=== PATIENT | male | born 1950 | race Caucasian/White ===

== ENCOUNTER 2018-05-08 22:58 | Inpatient (IN) ==
[2018-05-08] MEDS ORDERED: Labetalol HCl Inj 100 MG/20 ML Vial IV.PUSH ONE (23:25)
[2018-05-08] MEDS ORDERED: Sod Chloride 0.9% Inj 1,000 ML IV.CONT SCH (23:30)
--- NOTE | 2018-05-08 23:30 | ED ---
HPI General Chief Complaint: Neuro Symptoms/Deficit Stated Complaint: weakness Time Seen by Provider: 05/08/18 23:21 History of Present Illness HPI Narrative: 67-year-old male presents to the emergency department by private transportation the care of his family for evaluation of altered mental status change in his speech and complaint of numbness to the right side of the face and arm but some weakness to the left lower extremity. Patient stated he started noticing some numbness and tingling in his fingers and hands over the past few days but today since about 3 PM he has noticed that his symptoms have worsened with affecting his speech and with weakness to his left lower extremity. Patient has history of hypertension and diabetes. Patient denies known history of tobaccoism dyslipidemia atrial fibrillation denies any recent fever or injury or fall. Patient's stepdaughter at bedside states she is noted symptoms since she called him which is her routine around 530 and his symptoms have not improved that he seems altered in his mentation as well as speech to seems not to be normal. Here patient can articulate complete sentences and seems to have intact mentation. Related Data Allergies Allergy/AdvReac Type Severity Reaction Status Date / Time No Known Allergies Allergy Verified 05/08/18 23:09 Review of Systems Except as stated in HPI: all other systems reviewed are negative [facility] Medical History Medical History Diabetes (Acute) Hypertension (Acute) Social History Social History Substance History: No History of Abuse Smoking Status: Never smoker How Often Do You Have a Drink Containing Alcohol: Never Recent Travel in [facility] within the Last 8 Weeks: No Recent Out of Country Travel within the Last 8 Weeks: No Immunization History Tetanus Immunization: Unsure Hx Influenza Vaccine This Season: No Exam Narrative Exam Narrative: GENERAL: Well-developed well-nourished obese male in no acute distress no respiratory distress; GCS 15 SKIN: Focused skin assessment warm/dry. HEAD: Atraumatic. Normocephalic. EYES: Pupils equal and round. No scleral icterus. No injection or drainage. ENT: No nasal bleeding or discharge. Mucous membranes pink and moist. NECK: Trachea midline. No JVD. CARDIOVASCULAR: Regular rate and rhythm. No murmur appreciated. RESPIRATORY: No accessory muscle use. Clear to auscultation. Breath sounds equal bilaterally. GASTROINTESTINAL: Abdomen soft, non-tender, nondistended. Hepatic and splenic margins not palpable. MUSCULOSKELETAL: No obvious deformities. No clubbing. No cyanosis. No edema. NEUROLOGICAL: Awake and alert. No obvious cranial nerve deficits. Motor grossly within normal limits. Mild left lower extremity limb ataxia. No pronator drift. Normal speech. PSYCHIATRIC: Appropriate mood and affect; insight and judgment normal. Course Initial Documented Vital Signs Temperature 99 F 05/08/18 23:04 Pulse Rate 76 05/08/18 23:04 Respiratory Rate 20 05/08/18 23:04 Blood Pressure 226/109 H 05/08/18 23:04 Pulse Oximetry 98 05/08/18 23:04 Last Documented Vital Signs Temperature 99 F 05/08/18 23:04 Pulse Rate 79 05/09/18 01:23 Respiratory Rate 17 05/09/18 01:23 Blood Pressure 148/67 H 05/09/18 01:23 Pulse Oximetry 97 05/09/18 01:23 NIH Stroke Scale NIH Stroke Scale Level of Consciousness: 0-Alert Orientation Questions: 0-Answers both correct Responds to Commands: 0-Both tasks correct Gaze Eye Movement: 0-Horizontal movement WNL Visual Lackey: 0-No visual field defect Facial Movement: 0-Normal Motor Functions Arm LEFT: 0-No drift Motor Functions Arm RIGHT: 0-No drift Motor Functions Leg LEFT: 0-No drift Motor Functions Leg RIGHT: 0-No drift Limb Ataxia: 1-Ataxia in one limb Sensory Loss: 0-No sensory loss Best Language: 0-Normal Articulation: 0-Normal Extinction or Inattention Sensory: 0-Absent Total: 1 Medical Decision Making [facility] Narrative Medical decision making narrative: 67-year-old male with hypertension and diabetes presents with change in speech per family and mild altered mentation that appears to have improved since onset of symptoms around 3 PM according to patient although seems unchanged according to family members that have noted his symptoms since 5:30 PM today. Patient will be placed on ekg monitor with continuous pulse oximetry EKG shows sinus rhythm first-degree AV block no acute ST elevation injury pattern or ectopy noted patient be sent for imaging as well as basic lab tests. Patient is noted to be markedly hypertensive in triage as well as bedside blood pressure. Patient given labetalol 20 mg IV 1 dose Differential Diagnosis Differential Diagnosis: Uncontrolled hypertension, hypertensive crisis, TIA, CVA , ICH Lab Data Result diagrams: 05/08/18 23:30 05/08/18 23:30 Lab Results 05/08/18 05/08/18 05/08/18 Range/Units 23:18 23:30 23:30 WBC 10.2 (4.0-11.0) th/mm3 RBC 4.97 (4.50-5.90) mil/mm3 Hgb 13.7 (13.0-17.0) gm/dL Hct 42.6 (39.0-51.0) % MCV 85.7 (80.0-100.0) fL MCH 27.5 (27.0-34.0) pg MCHC 32.1 (32.0-36.0) % RDW 14.4 (11.6-17.2) % Plt Count 304 (150-450) th/mm3 MPV 7.6 (7.0-11.0) fL Neut % (Auto) 78.9 H (16.0-70.0) % Lymph % (Auto) 12.3 (9.0-44.0) % [place] % (Auto) 7.2 (0.0-8.0) % Eos % (Auto) 1.2 (0.0-4.0) % Baso % (Auto) 0.4 (0.0-2.0) % Neut # (Auto) 8.1 H (1.8-7.7) th/mm3 Lymph # (Auto) 1.3 (1.0-4.8) th/mm3 [place] # (Auto) 0.7 (0.0-0.9) th/mm3 Eos # (Auto) 0.1 (0.0-0.4) th/mm3 Baso # (Auto) 0.0 (0.0-0.2) th/mm3 WBC Differential . Differential Comment Auto diff final PT 10.0 (9.8-11.6) sec INR 1.0 Ratio APTT 25.4 (24.3-30.1) sec Sodium (136-145) meq/L Potassium (3.5-5.1) meq/L Chloride (98-107) meq/L Carbon Dioxide (21.0-32.0) meq/L Anion Gap (5-15) meq/L BUN (7-18) mg/dL Creatinine (0.60-1.30) mg/dL Estimated GFR (>89) mL/min POC Glucose 145 H (68-110) mg/dl Random Glucose (74-106) mg/dL Calcium (8.5-10.1) mg/dL Total Creatine Kinase (39-308) U/L CK-MB (CK-2) (0.5-3.6) ng/mL Troponin I (0.02-0.05) ng/mL B-Natriuretic Peptide (0-100) pg/mL Urine Color (Yellw/Straw) Urine Clarity (Clear) Urine pH (5.0-8.5) Ur Specific [place] (1.002-1.035) Urine Protein (Neg-Trace) mg/dL Urine Glucose (UA) (Negative) mg/dL Urine Ketones (Negative) mg/dL Urine Occult Blood (Negative) Urine Nitrate (Negative) Urine Bilirubin (Negative) Urine Urobilinogen (Less than 2) mg/dL Ur Leukocyte Esterase (Negative) Urine RBC (0-3) /hpf Urine WBC (0-5) /hpf Micro UA Comment Urine Culture Comments Blood Type Antibody Screen 05/08/18 05/08/18 05/08/18 Range/Units 23:30 23:30 23:30 WBC (4.0-11.0) th/mm3 RBC (4.50-5.90) mil/mm3 Hgb (13.0-17.0) gm/dL Hct (39.0-51.0) % MCV (80.0-100.0) fL MCH (27.0-34.0) pg MCHC (32.0-36.0) % RDW (11.6-17.2) % Plt Count (150-450) th/mm3 MPV (7.0-11.0) fL Neut % (Auto) (16.0-70.0) % Lymph % (Auto) (9.0-44.0) % [place] % (Auto) (0.0-8.0) % Eos % (Auto) (0.0-4.0) % Baso % (Auto) (0.0-2.0) % Neut # (Auto) (1.8-7.7) th/mm3 Lymph # (Auto) (1.0-4.8) th/mm3 [place] # (Auto) (0.0-0.9) th/mm3 Eos # (Auto) (0.0-0.4) th/mm3 Baso # (Auto) (0.0-0.2) th/mm3 WBC Differential Differential Comment PT (9.8-11.6) sec INR Ratio APTT (24.3-30.1) sec Sodium 137 (136-145) meq/L Potassium 3.9 (3.5-5.1) meq/L Chloride 100 (98-107) meq/L Carbon Dioxide 32.0 (21.0-32.0) meq/L Anion Gap 5 (5-15) meq/L BUN 18 (7-18) mg/dL Creatinine 1.02 (0.60-1.30) mg/dL Estimated GFR 73 L (>89) mL/min POC Glucose (68-110) mg/dl Random Glucose 148 H (74-106) mg/dL Calcium 8.7 (8.5-10.1) mg/dL Total Creatine Kinase 148 (39-308) U/L CK-MB (CK-2) 4.0 H (0.5-3.6) ng/mL Troponin I Less than 0.02 L (0.02-0.05) ng/mL B-Natriuretic Peptide 66 (0-100) pg/mL Urine Color (Yellw/Straw) Urine Clarity (Clear) Urine pH (5.0-8.5) Ur Specific [place] (1.002-1.035) Urine Protein (Neg-Trace) mg/dL Urine Glucose (UA) (Negative) mg/dL Urine Ketones (Negative) mg/dL Urine Occult Blood (Negative) Urine Nitrate (Negative) Urine Bilirubin (Negative) Urine Urobilinogen (Less than 2) mg/dL Ur Leukocyte Esterase (Negative) Urine RBC (0-3) /hpf Urine WBC (0-5) /hpf Micro UA Comment Urine Culture Comments Blood Type A Positive Antibody Screen Negative 05/09/18 Range/Units 00:00 WBC (4.0-11.0) th/mm3 RBC (4.50-5.90) mil/mm3 Hgb (13.0-17.0) gm/dL Hct (39.0-51.0) % MCV (80.0-100.0) fL MCH (27.0-34.0) pg MCHC (32.0-36.0) % RDW (11.6-17.2) % Plt Count (150-450) th/mm3 MPV (7.0-11.0) fL Neut % (Auto) (16.0-70.0) % Lymph % (Auto) (9.0-44.0) % [place] % (Auto) (0.0-8.0) % Eos % (Auto) (0.0-4.0) % Baso % (Auto) (0.0-2.0) % Neut # (Auto) (1.8-7.7) th/mm3 Lymph # (Auto) (1.0-4.8) th/mm3 [place] # (Auto) (0.0-0.9) th/mm3 Eos # (Auto) (0.0-0.4) th/mm3 Baso # (Auto) (0.0-0.2) th/mm3 WBC Differential Differential Comment PT (9.8-11.6) sec INR Ratio APTT (24.3-30.1) sec Sodium (136-145) meq/L Potassium (3.5-5.1) meq/L Chloride (98-107) meq/L Carbon Dioxide (21.0-32.0) meq/L Anion Gap (5-15) meq/L BUN (7-18) mg/dL Creatinine (0.60-1.30) mg/dL Estimated GFR (>89) mL/min POC Glucose (68-110) mg/dl Random Glucose (74-106) mg/dL Calcium (8.5-10.1) mg/dL Total Creatine Kinase (39-308) U/L CK-MB (CK-2) (0.5-3.6) ng/mL Troponin I (0.02-0.05) ng/mL B-Natriuretic Peptide (0-100) pg/mL Urine Color Straw (Yellw/Straw) Urine Clarity Clear (Clear) Urine pH 7.0 (5.0-8.5) Ur Specific [place] 1.010 (1.002-1.035) Urine Protein 100 H (Neg-Trace) mg/dL Urine Glucose (UA) 50 (Negative) mg/dL Urine Ketones Negative (Negative) mg/dL Urine Occult Blood Negative (Negative) Urine Nitrate Negative (Negative) Urine Bilirubin Negative (Negative) Urine Urobilinogen Less than 2 (Less than 2) mg/dL Ur Leukocyte Esterase Negative (Negative) Urine RBC 1 (0-3) /hpf Urine WBC Less than 1 (0-5) /hpf Micro UA Comment Culture not ind Urine Culture Comments Culture not ind Blood Type Antibody Screen Imaging Data Radiologist's impression: Chest X-Ray 05/08/18 23:21 CONCLUSION: 1. Cardiomegaly with minimal positive fluid balance. Head CT 05/08/18 23:21 CONCLUSION: 1. No acute intracranial abnormality. 2. Paranasal sinus mucosal disease, as above. . ECG Data EKG Prior to Arrival: No Attestation: I personally reviewed and interpreted this ECG as follows: Prior ECG tracings: available for review Interpretation: EKG: Normal sinus rhythm rate 73 first-degree AV block moderate intraventricular conduction delay LVH by voltage criteria no acute ST elevation or injury pattern change noted Discharge Plan Discharge Disposition Patient Disposition: 30 Still Patient Discharge Condition Condition: Stable Discharge Details Diagnosis: Transient cerebral ischemia, Hypertension, uncontrolled, Peripheral edema Physicians Team ED Provider: Arlene Ly Primary Care Provider: UNKNOWN, Status ED Status: With Doctor
[2018-05-08 23:46] LABS: Baso % (Auto) 0.4 % (0.0-2.0); Eos # (Auto) 0.1 th/mm3 (0.0-0.4); Eos % (Auto) 1.2 % (0.0-4.0); Hematocrit 42.6 % (39.0-51.0); Hemoglobin 13.7 gm/dL (13.0-17.0); Lymph # (Auto) 1.3 th/mm3 (1.0-4.8); Lymph % (Auto) 12.3 % (9.0-44.0); Mean Corpuscular HGB Conc 32.1 % (32.0-36.0); Mean Corpuscular Hemoglobin 27.5 pg (27.0-34.0); Mean Corpuscular Volume 85.7 fL (80.0-100.0); Mean Platelet Volume 7.6 fL (7.0-11.0); Mono # (Auto) 0.7 th/mm3 (0.0-0.9); Mono % (Auto) 7.2 % (0.0-8.0); Neut # (Auto) 8.1 th/mm3 (1.8-7.7); Neut % (Auto) 78.9 % (16.0-70.0); Platelet Count 304 th/mm3 (150-450); Red Blood Count 4.97 mil/mm3 (4.50-5.90); Red Cell Distribution Width 14.4 % (11.6-17.2); White Blood Count 10.2 th/mm3 (4.0-11.0)
[2018-05-08 23:57] LABS: Activated Partial Thrombo Time 25.4 sec (24.3-30.1)
[2018-05-09 00:06] LABS: Creatine Kinase 148 U/L (39-308)
--- NOTE | 2018-05-09 00:09 | CT ---
EXAM DATE: 05/09/2018 12:02 AM EDT AGE/SEX: 67 years / Male INDICATIONS: Right sided facial droop, bilateral upper extremity numbness, CLINICAL DATA: This is the patient's initial encounter. Patient reports that signs and symptoms have been present for 1 day and indicates a pain score of 0/10. MEDICAL/SURGICAL HISTORY: Hypertension. Diabetes. None. RADIATION DOSE: 66.34 CTDI (mGy) [place] [facility] [place]26[place]. . TECHNIQUE: CT of the head without contrast. Using automated exposure control and adjustment of the mA and/or kV according to patient size, radiation dose was kept as low as reasonably achievable to ob tain optimal diagnostic quality images. DICOM format image data is available electronically for revi ew and comparison. FINDINGS: Cerebrum: The ventricles are normal for age. No evidence of midline shift, mass lesion, hemorrhage o r acute infarction. No extraaxial fluid collections are seen. Posterior Fossa: The cerebellum and brainstem are intact. The 4th ventricle is midline. The cerebe llopontine angle is unremarkable. Extracranial: The visualized portion of the orbits is intact. Small mucous retention cyst in the rig ht maxillary sinus with mucopyocele thickening in the ethmoid air cells. Skull: The calvaria is intact. No evidence of skull fracture. CONCLUSION: 1. No acute intracranial abnormality. 2. Paranasal sinus mucosal disease, as above. . Electronically signed by: Travis Brown MD 05/09/2018 12:08 AM EDT
--- NOTE | 2018-05-09 00:10 | XR ---
EXAM DATE: 05/09/2018 12:02 AM EDT AGE/SEX: 67 years / Male INDICATIONS: Weakness and hypertension. CLINICAL DATA: This is the patient's initial encounter. Patient reports that signs and symptoms have been present for 1 day and indicates a pain score of 0/10. MEDICAL/SURGICAL HISTORY: Hypertension. None. [place] [facility] [place] . FINDINGS: Mild diffuse interstitial prominence. No significant new focal pleural or parenchymal opacities. Card iac silhouette is enlarged. Bony thorax is intact. CONCLUSION: 1. Cardiomegaly with minimal positive fluid balance. Electronically signed by: Travis Brown MD 05/09/2018 12:08 AM EDT
[2018-05-09 00:20] LABS: Bilirubin,Urine Negative (Negative); Clarity,Urine Clear (Clear); Color,Urine Straw (Yellw/Straw); Glucose,Urine (UA) 50 mg/dL (Negative); Leukocyte Esterase,Urine Negative (Negative); Nitrite,Urine Negative (Negative)
[2018-05-09 00:29] LABS: Anion Gap 5 meq/L (5-15); Blood Urea Nitrogen 18 mg/dL (7-18); Calcium 8.7 mg/dL (8.5-10.1); Chloride 100 meq/L (98-107); Glomerular Filtration Rate 73 mL/min (>89); Glucose,Random 148 mg/dL (74-106); Potassium 3.9 meq/L (3.5-5.1); Sodium 137 meq/L (136-145)
[2018-05-09] MEDS ORDERED: Aspirin 325 MG Tablet PO ONE (02:48)
[2018-05-09] MEDS ORDERED: Dextrose 50% in Water 50 ML Vial IV.PUSH PRN (02:52)
[2018-05-09] MEDS ORDERED: Temazepam 15 MG Capsule PO PRN (02:54)
[2018-05-09] MEDS ORDERED: Bisacodyl 10 MG Supp RECTAL PRN (02:54)
[2018-05-09] MEDS: Sod Chloride 0.9% Inj 1,000 ML IV.CONT SCH (03:39)
--- NOTE | 2018-05-09 03:46 | P.HPIM ---
History of Present Illness Primary Care Physician: UNKNOWN History of Present Illness: This is a 67-year-old male with a PMH of HTN, DM and Peripheral Neuropathy who was brought to the ER secondary to slurred speech and facial droop starting earlier this afternoon. Pt's stepdaughter at bedside, states she noted pt to have slurred speech and word finding difficulty at approx 3pm. Stepdaughter drove over from [place] and noted pt to have facial droop. Pt also notes bilateral upper extremity numbness, which is chronic, but states worse than usual. Also notes chronic decreased motor strength in hands w/ difficulty grasping objects, "going on for months", but became transiently worse this afternoon, now back to baseline. No h/o similar symptoms. Takes full dose ASA daily. On arrival, BP 226/109, HR 76, O2 sat 98% on RA, Temp 99. CBC unremarkable. Chemistry essentially unremarkable. Troponin negative. UA negative for UTI. INR 1.0. Exar with cardiomegaly, minimal positive fluid balance. CT Head with no acute findings. - Diagnosis (1) TIA (transient ischemic attack) (2) HTN (hypertension) (3) DM (diabetes mellitus) Review of Systems All other systems reviewed negative except as stated in HPI PMFSH - History History Provided By: Patient - Medical History Medical History: Medical History (Last Reviewed 05/08/18 @ 23:28 by Arlene Ly MD) Diabetes Hypertension - Tobacco History Smoking Status: Never smoker - Alcohol History How Often Do You Have a Drink Containing Alcohol: Never - Substance Use History Substance History: No History of Abuse - Travel History Recent Travel in the [place] Within the Last 8 Weeks: No Recent Travel Out of the Country Within the Last 8 Weeks: No - Immunization History Tetanus Immunization: Unsure Hx Influenza Vaccine This Season: No Medications and Allergies Active Medications: Active Medications Al Hydroxide/Mg Hydroxide (Milk Of Vamsi Liq) 30 ml PO Q12H PRN PRN Reason: Mild Constipation Aspirin (Aspirin) 325 mg PO DAILY CECIL Bisacodyl (Dulcolax Supp) 10 mg RECTAL DAILY PRN PRN Reason: SEVERE CONSITIPATION Dextrose (D50w Vial) 50 ml IV.PUSH UNSCH PRN PRN Reason: PER HYPOGLYCEMIA PROTOCOL Enalaprilat (Vasotec Inj) 1.25 mg IV.PUSH Q4H PRN PRN Reason: For SBP > 220 or DBP > 120 Glucagon (Glucagon Inj) 1 mg OTHER UNSCH PRN PRN Reason: for Hypoglycemia Protocol Sodium Chloride (Ns Inj) 1,000 mls @ 70 mls/hr IV.CONT .[id number] [facility] Insulin Aspart (Novolog Insulin Correctional Sugar Inj) 0 unit SQ ACHS CECIL; Protocol Lactulose (Lactulose Liq) 30 ml PO DAILY PRN PRN Reason: SEVERE CONSITIPATION Ondansetron HCl (Zofran Odt) 4 mg PO Q6H PRN PRN Reason: NAUSEA OR VOMITING Pravastatin Sodium (Pravachol) 40 mg PO HS [facility] Senna/Docusate Sodium (Dayanna-Colace) 1 tab PO BID [facility] Sennosides (Senokot) 17.2 mg PO Q12H PRN PRN Reason: Moderate Constipation Sodium Chloride (Ns Flush) 2 ml IV.FLUSH BID CECIL Sodium Chloride (Ns Flush) 2 ml IV.FLUSH PRN PRN PRN Reason: FLUSH AFTER USING IV ACCESS Temazepam (Restoril) 15 mg PO HS PRN PRN Reason: INSOMNIA Allergies Allergy/AdvReac Type Severity Reaction Status Date / Time No Known Allergies Allergy Verified 05/08/18 23:09 Home Medications Medication Instructions Recorded Confirmed Type atenolol 25 mg PO DAILY 05/09/18 05/09/18 History fentanyl 1 patch TRANSDERMAL Q72H 05/09/18 05/09/18 History furosemide 40 mg PO DAILY 05/09/18 05/09/18 History metformin 500 mg PO BID 05/09/18 History morphine 100 mg PO Q12H 05/09/18 05/09/18 History oxycodone 05/09/18 History Exam Vital signs: Vital Signs 05/08/18 23:04 05/08/18 23:12 05/08/18 23:27 Temperature 99 F Pulse Rate 76 76 Respiratory Rate 20 18 Blood Pressure 226/109 H 187/100 H Pulse Oximetry 98 98 98 05/09/18 01:23 05/09/18 03:21 Temperature Pulse Rate 79 72 Respiratory Rate 17 18 Blood Pressure 148/67 H 144/66 H Pulse Oximetry 97 99 Intake & Output 05/08/18 05/08/18 05/09/18 06:59 18:59 06:59 Weight 129.274 kg Narrative: PE: GENERAL: Pleasant middle-aged white male in no acute distress. Family at bedside HEENT: PERRLA, EOMI. No scleral icterus or conjunctival pallor. No lid lag or facial droop. CARDIOVASCULAR: Regular rate and rhythm. No obvious murmurs to auscultation. No chest tenderness to palpation. RESPIRATORY: No obvious rhonchi or wheezing. Clear to auscultation. Breath sounds equal bilaterally. GASTROINTESTINAL: Abdomen soft, non-tender, nondistended. BS normal. MUSCULOSKELETAL: Extremities without clubbing, cyanosis. +2 edema. No obvious deformities. NEUROLOGICAL: Awake, alert and oriented x4. No focal motor deficits. Moving both upper and lower extremities spontaneously. Results - Labs CBC & Chem 7: 05/08/18 23:30 05/08/18 23:30 Labs: Short CBC 05/08/18 Range/Units 23:30 WBC 10.2 (4.0-11.0) th/mm3 Hgb 13.7 (13.0-17.0) gm/dL Hct 42.6 (39.0-51.0) % Plt Count 304 (150-450) th/mm3 BMP 05/08/18 23:30 Sodium 137 Potassium 3.9 Chloride 100 Carbon Dioxide 32.0 BUN 18 Creatinine 1.02 Calcium 8.7 Cardiac Enzymes 05/08/18 Range/Units 23:30 Total Creatine Kinase 148 (39-308) U/L CK-MB (CK-2) 4.0 H (0.5-3.6) ng/mL Troponin I Less than 0.02 L (0.02-0.05) ng/mL Urine 05/09/18 Range/Units 00:00 Urine Color Straw (Yellw/Straw) Urine Clarity Clear (Clear) Urine pH 7.0 (5.0-8.5) Ur Specific [place] 1.010 (1.002-1.035) Urine Protein 100 H (Neg-Trace) mg/dL Urine Glucose (UA) 50 (Negative) mg/dL - Imaging Impressions Chest X-Ray 05/08/18 23:21 CONCLUSION: 1. Cardiomegaly with minimal positive fluid balance. Head CT 05/08/18 23:21 CONCLUSION: 1. No acute intracranial abnormality. 2. Paranasal sinus mucosal disease, as above. . Caprini VTE Risk Assessment Caprini VTE Risk Assessment: No/Low Risk (score <= 1) Caprini Risk Assessment Model: Point Value = 1 Point Value = 2 Point Value = 3 Point Value = 5 Age 41-60 Minor surgery BMI > 25 kg/m2 Swollen legs Varicose veins or History of unexplained or recurrent spontaneous Oral contraceptives or hormone replacement Sepsis (< 1 month) Serious lung disease, including pneumonia (< 1 month) Abnormal pulmonary function Acute myocardial infarction Congestive heart failure (< 1 month) History of inflammatory bowel disease Medical patient at bed rest Age 61-74 Arthroscopic surgery Major open surgery (> 45 min) Laparoscopic surgery (> 45 min) Malignancy Confined to bed (> 72 hours) Immobilizing plaster cast Central venous access Age >= 75 History of VTE Family history of VTE Factor V Leiden Prothrombin [id number] Lupus anticoagulant Anticardiolipin antibodies Elevated serum homocysteine Heparin-induced thrombocytopenia Other congenital or acquired thrombophilia Stroke (< 1 month) Elective arthroplasty Hip, pelvis, or leg fracture Acute spinal cord injury (< 1 month) Prophylaxis Regimen: Total Risk Factor Score Risk Level Prophylaxis Regimen 0-1 Low Early ambulation 2 Moderate Order ONE of the following: *Sequential Compression Device (SCD) *Heparin 5000 units SQ BID 3-4 Higher Order ONE of the following medications: *Heparin 5000 units SQ TID *Enoxaparin/Lovenox 40 mg SQ daily (WT < 150 kg, CrCl > 30 mL/min) *Enoxaparin/Lovenox 30 mg SQ daily (WT < 150 kg, CrCl > 10-29 mL/min) *Enoxaparin/Lovenox 30 mg SQ BID (WT < 150 kg, CrCl > 30 mL/min) AND/OR *Sequential Compression Device (SCD) 5 or more Highest Order ONE of the following medications: *Heparin 5000 units SQ TID (Preferred with Epidurals) *Enoxaparin/Lovenox 40 mg SQ daily (WT < 150 kg, CrCl > 30 mL/min) *Enoxaparin/Lovenox 30 mg SQ daily (WT < 150 kg, CrCl > 10-29 mL/min) *Enoxaparin/Lovenox 30 mg SQ BID (WT < 150 kg, CrCl > 30 mL/min) AND *Sequential Compression Device (SCD) Assessment and Plan - Assessment (1) TIA (transient ischemic attack) Code(s): G45.9 - Transient cerebral ischemic attack, unspecified Status: Acute (2) HTN (hypertension) Code(s): I10 - Essential (primary) hypertension Status: Acute (3) DM (diabetes mellitus) Code(s): E11.9 - Type 2 diabetes mellitus without complications Status: Acute - Plan A/P: 1. TIA: acute onset facial droop, slurred speech and upper extremity numbness , now improved. CT Head w/ no acute findings, images reviewed. On ASA 325mg qd. Resume ASA, start Statin. Check MRI/MRA to eval for underlying stroke. Check Echo to eval for possible embolic event. Consult PT/Speech Therapy. NPO until passes swallow. IVF, HOB flat, Consult Neurology for further evaluation/ recommendations. 2. HTN: Uncontrolled. BP 220's on arrival, s/p Labetalol and Lasix in ER, BP currently 140's systolic, will hold off on any further antihypertensives to allow for permissive HTN. Monitor BP 3. DM: Hold Metformin. Sliding scale with Accu-Cheks. Check Hgb A1c 4. DVT Prophylaxis: SCD/teds. 5. Social work for DC planning as needed. 6. Case discussed at length with the ER physician, lab/record/imaging reviewed by me.
[2018-05-09] MEDS: Insulin NovoLOG Aspart Correctional Sugar Inj SQ SCH ×4 (07:30→20:43)
[2018-05-09] MEDS: Aspirin 325 MG Tablet PO SCH (10:10)
[2018-05-09] MEDS: Senna/Docusate Sodium 8.6/50 MG Tablet PO SCH ×2 (10:10→20:53)
[2018-05-09] MEDS: Morphine Sulfate 100 MG SR Tablet PO SCH ×2 (10:10→20:54)
--- NOTE | 2018-05-09 10:28 | MR ---
EXAM DATE: 05/09/2018 10:11 AM EDT AGE/SEX: 67 years / Male INDICATIONS: Slurred speech. CLINICAL DATA: This is the patient's initial encounter. Patient reports that signs and symptoms have been present for 1 day and indicates a pain score of 0/10. MEDICAL/SURGICAL HISTORY: Hypertension. Diabetes mellitus type II. . Left knee surgery. COMPARISON: [facility] [place] W/O CONTRAST, 05/09/2018. . TECHNIQUE: 3D [id number] MRA was performed. Source images, multiplanar STS MIP, and 3D volum e MIP reconstructions were reviewed. FINDINGS: There are chronic atherosclerotic changes involving multiple branches bilaterally including posterior circulation. There is no evidence for aneurysm or vascular malformation. No definite vessel truncati on or filling defect is seen. Conclusion:Chronic atherosclerotic disease without evidence of truncation or definite filling defects . Electronically signed by: Olvin Kenney MD 05/09/2018 10:27 AM EDT
--- NOTE | 2018-05-09 10:31 | MR ---
EXAM DATE: 05/09/2018 10:13 AM EDT AGE/SEX: 67 years / Male INDICATIONS: Slurred speech. CLINICAL DATA: This is the patient's initial encounter. Patient reports that signs and symptoms have been present for 1 day and indicates a pain score of 0/10. MEDICAL/SURGICAL HISTORY: Diabetes mellitus type II. Hypertension. . Left knee surgery. COMPARISON: [facility], MRA HEAD W/O CONTRAST, 05/09/2018. . TECHNIQUE: Multiplanar, multisequence examination of the brain was performed without contrast. FINDINGS: There is no evidence for intracranial hemorrhage, mass effect, mass lesions, edema, or ext ra-axial fluid collections. There are no signs of acute infarction for technique. The diffusion por tion is unremarkable. Slight degree of brain atrophy is seen. Moderate periventricular white matter c hanges are seen nonspecific mostly consistent with chronic small vessel ischemic changes. There is a lso slight chronic sinusitis mainly in the ethmoid air cells. CONCLUSION: Chronic small vessel ischemic and atrophic changes. Electronically signed by: Olvin Kenney MD 05/09/2018 10:29 AM EDT
--- NOTE | 2018-05-09 11:16 | US ---
EXAM DATE: 05/09/2018 11:09 AM EDT AGE/SEX: 67 years / Male INDICATIONS: Slurred speech and facial droop. CLINICAL DATA: This is the patient's initial encounter. Patient reports that signs and symptoms have been present for 1 day and indicates a pain score of 0/10. MEDICAL/SURGICAL HISTORY: Diabetes. Hypertension. None. COMPARISON: No prior exams available for comparison. VELOCITY PARAMETERS: ICA/CCA Ratio: Right 0.8 , Left 0.9 ICA: Right 83 cm/sec, Left 88 cm/sec CCA: Right 100 cm/sec, Left 100 cm/sec ECA: Right 91 cm/sec, Left 112 cm/sec Vertebral: Right 46 cm/sec antegrade, Left 63 cm/sec antegrade FINDINGS: Right Carotid: No significant plaque is visualized.The waveforms are within normal limits. Left Carotid: No significant plaque is visualized. The waveforms are within normal limits. Other: None. CONCLUSION: Unremarkable study. Electronically signed by: Olvin Kenney MD 05/09/2018 11:14 AM EDT
--- NOTE | 2018-05-09 11:55 | MB ---
cc: Barrington Sena MD DATE: 05/09/2018 HISTORY OF PRESENT ILLNESS: This is a 67-year-old right-handed man with diabetes, non-insulin; hypertension. He does take 325 aspirin a day. He was also on a diuretic at home. For the last 2 months, his hands have fallen asleep at night and somewhat during the day. His toes have been numb for about 6 months. He has had swelling in his feet for about 6 months and he noticed yesterday was numb on the right face and arm, not his leg, and then he had some difficulty talking, possibly some expressive aphasia, a bright flash in the left eye, a mild headache and he had headaches for the last several months, also. He thinks he may have a neck problem because sometimes when he turns head to the left or to the right, he notices his hands might go numb. He was brought in for possible TIA. SOCIAL HISTORY: Nonsmoker, drinker, lives with his friend. FAMILY HISTORY: Positive for cancer. Negative for seizure. Positive for stroke. REVIEW OF SYSTEMS: He denied any hypercholesterolemia, [place], stent, angioplasty, AFib, Coumadin, CABG; renal, hepatic, or pulmonary disease; thyroid disease, lupus, ulcer, cancer, seizure or stroke. He denied any chest pain or palpitations. HOME MEDICATIONS: 1. Oxycodone. 2. Fentanyl patch. 3. Lasix. 4. Atenolol. 5. Morphine 100 mg every 12 hours. 6. Metformin. 7. Aspirin 325. PHYSICAL EXAMINATION: VITAL SIGNS: Afebrile, 72, 18. Sinus rhythm. NECK: There were no carotid bruits. HEART: Regular rhythm. I do not detect a murmur. ABDOMEN: He is somewhat obese. NEUROLOGIC: Pupils are equal. Visual hall are full. Extraocular movements intact without nystagmus. Her face was symmetric with normal sensation. Tongue was midline. There is no drift. He had normal strength in upper and lower extremities bilaterally. DTRs are absent throughout. Toes are downgoing bilaterally. Pinprick was diminished just at the toes, otherwise intact in bilateral lower extremities and upper extremities including the median and ulnar nerve distribution. He is not ataxic on [id number]. Gait is steady. He felt a little dizzy standing up. LABORATORY DATA: CBC is normal. UA was negative. Basic metabolic profile essentially normal. His CPK was normal. Troponin negative. BNP 66. Coags normal. IMAGING STUDIES: He had an MRI of the brain that showed some mild white matter changes bilaterally. No acute infarct. No cortically based infarcts. MRA [facility] [place] is normal and a carotid ultrasound done also read as normal. EKG showed sinus rhythm. IMPRESSION AND RECOMMENDATIONS: Possibly a transient ischemic attack. I would recommend starting him on Plavix and stopping the aspirin in 3 days. We will check an echo and a Holter, an MRA of the neck, an LDL cholesterol, some other blood work and I will be following him with you in the hospital. He looks like he is fully recovered at this time. His standing blood pressure is 174/80. We will check an MRI of his cervical spine with the symptoms with turning his head, although by history, he probably has mild diabetic neuropathy and probably some carpal tunnel component, which we could look as an outpatient. Otherwise, if the echo is negative, the Holter has been done and his MRA of the neck and MRI of the cervical spine is negative and his LDL looks okay, he could be discharged neuro merida on the Plavix. We will also check an EEG on him and if that has been performed, he can be discharged also and I can followup the results. MD SARAH Graham/MILAD , 11:27 AM , 11:37 AM
--- NOTE | 2018-05-09 14:27 | ECG ---
Date Performed: 05/08/2018 Time Performed: 23:25:01 PTAGE: 67 years EKG: Sinus rhythm WITH FIRST DEGREE AV BLOCK MODERATE INTRAVENTRICULAR CONDUCTION DELAY MODERATE VOLTAGE CRITERIA FOR LVH, CONSIDER NORMAL VARIANT Since previous tracing, no significant change noted ABNORMAL ECG PREVIOUS TRACING : 05/19/2014 11.52.56 DOCTOR: Chuck Luciano Interpretating Date/Time 05/09/2018 14:26:07
[2018-05-09 14:32] LABS: Amphetamine Urine With Conf Neg (Neg); Barbiturate Urine With Conf Neg (Neg); Benzodiazepine Urine With Conf Neg (Neg)
[2018-05-09] MEDS ORDERED: Gadobenate Dimeglumine PF Inj 20 ML VIAL (for RAD MRI) IVCONTRAST ONE (14:51)
--- NOTE | 2018-05-09 15:11 | MR ---
EXAM DATE: 05/09/2018 2:37 PM EDT AGE/SEX: 67 years / Male INDICATIONS: . Cerebrovascular disease. CLINICAL DATA: This is the patient's initial encounter. Patient reports that signs and symptoms have been present for 1 day and indicates a pain score of 0/10. MEDICAL/SURGICAL HISTORY: Hypertension. Diabetes mellitus type II. . Left knee surgery. COMPARISON: No prior exams available for comparison. TECHNIQUE: 20 ml Multihance (gadobenate) contrast infused MRA (single exam dose) of the extracrania l circulation was performed using a neurovascular coil. Postprocessing was performed, including rota ting sub-volume maximum intensity projections of each carotid artery, rotating full-volume maximum in tensity projections of both carotid arteries, sagittal and coronal sliding thin-slab reformations of each carotid artery, and left oblique sliding thin-slab reformation through the aortic arch to includ e the origin of the arch branch vessels. FINDINGS: The takeoff of the major vessels from the arch appear intact. The vertebral arteries appear intact and symmetric bilaterally. Subclavian arteries appear intact. The left common carotid artery and internal carotid artery are intact without any significant stenosis. The right internal carotid a rtery bifurcation is difficult to evaluate due to artifact and stenosis at this site is difficult to exclude. High-grade stenosis is not suspected, however [id number] is difficult to exclude. CONCLUSION: 1. Limited evaluation of the right ICA due to artifact and slight to moderate stenosis is difficult to exclude. Percent stenosis is calculated using the diameter of the stenotic region over the diameter of the nor mal distal internal carotid artery Electronically signed by: Olvin Kenney MD 05/09/2018 3:09 PM EDT
--- NOTE | 2018-05-09 15:14 | MR ---
EXAM DATE: 05/09/2018 2:37 PM EDT AGE/SEX: 67 years / Male INDICATIONS: Myelopathy. CLINICAL DATA: This is the patient's initial encounter. Patient reports that signs and symptoms have been present for 1 day and indicates a pain score of 0/10. MEDICAL/SURGICAL HISTORY: Diabetes mellitus type II. Hypertension. . Left knee surgery. COMPARISON: No prior exams available for comparison. TECHNIQUE: Multiplanar, multisequence MRI examination of the cervical spine was performed without co ntrast. FINDINGS: The marrow signal appears intact, and the spinal cord appears intact for technique. C2-C3: There is slight neural foramina compromise bilaterally due to bulging disc and hypertrophic c hanges. No significant thecal sac stenosis is seen. C3-C4: There is moderate neural foramina compromise bilaterally due to bulging disc and hypertrophic changes. There is anterior extradural impression and effacement of the anterior CSF space due to bul ging disc and hypertrophic changes, however overall no significant thecal sac stenosis is seen. C4-C5: There is significant overall thecal sac stenosis with flattening of the spinal cord due to bu lging disc and hypertrophic changes. There is moderate neural foramina compromise bilaterally due to bulging disc and hypertrophic changes. C5-C6: There is significant overall thecal sac stenosis with flattening of the spinal cord due to bu lging disc and hypertrophic changes with large disc/osteophyte complex protruding on the right side c ausing flattening of the spinal cord and significant stenosis of the right lateral recess and impinge s the exiting nerve roots to a significant degree. C6-C7: There is moderate neural foramina compromise bilaterally due to bulging disc and hypertrophi c changes. There is anterior extradural impression and effacement of the anterior CSF space due to b ulging disc and hypertrophic changes, however overall no significant thecal sac stenosis is seen. C7-T1: No appreciable compromise to the thecal sac, exiting nerve roots are seen. The neural foramin a are patent bilaterally. No appreciable thecal sac stenosis is seen. CONCLUSION: Significant thecal sac stenosis C4-5 and C5-6 with slight flattening of the spinal cord at C5-6 level . Neural foraminal compromise bilateral C2-3, bilateral C3-4, bilateral C4-5, bilateral C5-6, bilateral C6-7. Electronically signed by: Olvin Kenney MD 05/09/2018 3:13 PM EDT
[2018-05-09 16:57] LABS: Chol/HDL Ratio 3.69 Ratio; HDL Cholesterol 48.5 mg/dL (40.0-60.0); Thyroid Stimulating Hormone 1.55 uIU/mL (0.358-3.740)
--- NOTE | 2018-05-09 17:49 | MB ---
cc: Barrington Sena MD, David J MD DATE: 05/09/2018 EEG NUMBER [id number] A 67-year-old man, change in mental status, numbness in the right side of the face. MRI negative. MEDICATIONS: Aspirin Plavix, Ativan Diffuse alpha and beta rhythms are seen. The recording overall is synchronous and symmetric. An 11 Hz, 60 microvolt posterior rhythm was seen. Photic stimulation was performed without significant posterior driving. The patient appears to fall asleep and reach some stage II sleep briefly. Photic stimulation was performed without significant posterior driving. Hyperventilation was not performed. IMPRESSION: A normal awake and sleep electroencephalogram. No evidence for a focal or diffuse abnormality. MD SARAH Graham/ , 05:37 PM , 05:41 PM
[2018-05-10] MEDS ORDERED: OXYCODONE 30 MG PO SCH
[2018-05-10] MEDS: Sod Chloride 0.9% Inj 1,000 ML IV.CONT SCH ×2 (02:51→07:16)
[2018-05-10] MEDS: Insulin NovoLOG Aspart Correctional Sugar Inj SQ SCH ×4 (07:18→20:13)
[2018-05-10] MEDS: Aspirin 325 MG Tablet PO SCH (08:00)
[2018-05-10] MEDS: Morphine Sulfate 100 MG SR Tablet PO SCH ×2 (08:00→20:18)
[2018-05-10] MEDS: Furosemide 40 MG Tablet PO SCH (08:00)
[2018-05-10] MEDS: Senna/Docusate Sodium 8.6/50 MG Tablet PO SCH ×2 (08:00→20:19)
[2018-05-10 08:01] LABS: Alanine Aminotransferase 17 U/L (12-78); Albumin 2.9 g/dL (3.4-5.0); Anion Gap 5 meq/L (5-15); Aspartate Aminotransferase 11 U/L (15-37); Blood Urea Nitrogen 19 mg/dL (7-18); Calcium 8.6 mg/dL (8.5-10.1); Carbon Dioxide 34.1 meq/L (21.0-32.0); Chloride 101 meq/L (98-107); Cholesterol 163 mg/dL (120-200); Glomerular Filtration Rate 83 mL/min (>89); Glucose,Random 171 mg/dL (74-106); Potassium 4.1 meq/L (3.5-5.1); Sodium 140 meq/L (136-145)
[2018-05-10] MEDS: Atenolol 25 MG Tablet PO SCH (08:01)
[2018-05-10 08:04] LABS: Alkaline Phosphatase 60 U/L (45-117); Chol/HDL Ratio 3.63 Ratio; HDL Cholesterol 44.9 mg/dL (40.0-60.0); LDL Cholesterol,Calculated 92 mg/dL (0-99); Total Protein 6.7 g/dL (6.4-8.2); Triglycerides 132 mg/dL (42-150)
[2018-05-10 10:39] LABS: Hemoglobin A1c 7.4 % (4.3-6.0)
--- NOTE | 2018-05-10 10:40 | P.PNNEU ---
Subjective Subjective Comments: sr Active Medications: Active Medications Al Hydroxide/Mg Hydroxide (Milk Of Magnesia Liq) 30 ml PO Q12H PRN PRN Reason: Mild Constipation Last Admin: 05/10/18 03:10 Dose: 30 ml Aspirin (Aspirin) 325 mg PO DAILY [facility] Last Admin: 05/10/18 08:00 Dose: 325 mg Atenolol (Tenormin) 25 mg PO DAILY [facility] Last Admin: 05/10/18 08:01 Dose: 25 mg Bisacodyl (Dulcolax Supp) 10 mg RECTAL DAILY PRN PRN Reason: SEVERE CONSITIPATION Clopidogrel Bisulfate (Plavix) 75 mg PO DAILY [facility] Last Admin: 05/10/18 08:00 Dose: 75 mg Dextrose (D50w Vial) 50 ml IV.PUSH UNSCH PRN PRN Reason: PER HYPOGLYCEMIA PROTOCOL Enalaprilat (Vasotec Inj) 1.25 mg IV.PUSH Q4H PRN PRN Reason: For SBP > 220 or DBP > 120 Fentanyl (Duragesic 100 Mcg Patch.72hr) 1 patch T-DERMAL Q72H [facility] Last Admin: 05/09/18 22:25 Dose: 1 patch Furosemide (Lasix) 40 mg PO DAILY [facility] Last Admin: 05/10/18 08:00 Dose: 40 mg Glucagon (Glucagon Inj) 1 mg OTHER UNSCH PRN PRN Reason: for Hypoglycemia Protocol Sodium Chloride (Ns Inj) 1,000 mls @ 70 mls/hr IV.CONT .[id number] [facility] Last Admin: 05/10/18 07:16 Dose: Not Given Insulin Aspart (Novolog Insulin Correctional Sugar Inj) 0 unit SQ ACHS [facility]; Protocol Last Admin: 05/10/18 07:18 Dose: 1 unit Lactulose (Lactulose Liq) 30 ml PO DAILY PRN PRN Reason: SEVERE CONSITIPATION Morphine Sulfate (Oramorph Sr) 100 mg PO Q12H [facility] Last Admin: 05/10/18 08:00 Dose: 100 mg Ondansetron HCl (Zofran Odt) 4 mg PO Q6H PRN PRN Reason: NAUSEA OR VOMITING Last Admin: 05/10/18 00:22 Dose: 4 mg Oxycodone HCl (Roxicodone) 30 mg PO Q4H PRN PRN Reason: PAIN SCALE 5-10 Last Admin: 05/10/18 07:17 Dose: 30 mg Pravastatin Sodium (Pravachol) 40 mg PO HS [facility] Last Admin: 05/09/18 20:53 Dose: 40 mg Senna/Docusate Sodium (Dayanna-Colace) 1 tab PO BID [facility] Last Admin: 05/10/18 08:00 Dose: 1 tab Sennosides (Senokot) 17.2 mg PO Q12H PRN PRN Reason: Moderate Constipation Sodium Chloride (Ns Flush) 2 ml IV.FLUSH BID [facility] Last Admin: 05/10/18 08:00 Dose: 2 ml Sodium Chloride (Ns Flush) 2 ml IV.FLUSH PRN PRN PRN Reason: FLUSH AFTER USING IV ACCESS Temazepam (Restoril) 15 mg PO HS PRN PRN Reason: INSOMNIA Allergies/Adverse Reactions: Allergies Allergy/AdvReac Type Severity Reaction Status Date / Time No Known Allergies Allergy Verified 05/08/18 23:09 Physical Exam Vital signs: Vital Signs 05/09/18 10:40 05/09/18 12:00 05/09/18 16:00 Temperature 97.8 F 97.5 F L Pulse Rate 72 71 Respiratory Rate 18 14 18 Blood Pressure 174/80 H 170/80 H Pulse Oximetry 94 L 96 05/09/18 20:00 05/10/18 00:00 05/10/18 01:00 Temperature 97.7 F 97.5 F L Pulse Rate 75 79 Respiratory Rate 19 19 16 Blood Pressure 158/70 H 164/75 H Pulse Oximetry 98 98 05/10/18 03:35 05/10/18 04:00 05/10/18 07:26 Temperature 97.5 F L Pulse Rate 77 75 Respiratory Rate 15 19 Blood Pressure 162/76 H Pulse Oximetry 98 05/10/18 07:47 05/10/18 08:00 Temperature 98.1 F Pulse Rate 77 Respiratory Rate 18 18 Blood Pressure 145/71 H Pulse Oximetry 92 L Intake & Output 05/09/18 05/10/18 05/10/18 18:59 06:59 18:59 Intake Total 1000 / 1000 Output Total 2200 / 2200 Balance -1200 / -1200 Weight 129.4 kg Intake: Oral 1000 / 1000 Output: Urine 2200 / 2200 Other: Date of Last Bowel Movement 05/08/18 05/08/18 05/08/18 Narrative: awake alert nl speech face sym moves all ok some tropia os Objective Laboratory Results - last 24 hr 05/09/18 05/09/18 05/09/18 11:17 13:46 15:40 ESR 11 Sodium Potassium Chloride Carbon Dioxide Anion Gap BUN Creatinine Estimated GFR POC Glucose 195 H Random Glucose Calcium Total Bilirubin AST ALT Alkaline Phosphatase Total Protein Albumin Triglycerides Cholesterol LDL Cholesterol, Calc HDL Cholesterol Cholesterol/HDL Ratio Vitamin B12 TSH Thyroxine (T4) Urine Opiates Screen Pos H Ur Barbiturates Screen Neg Ur Amphetamine Screen Neg U Benzodiazepines Scrn Neg Urine Cocaine Screen Neg U Cannabinoids Screen Neg 05/09/18 05/09/18 05/09/18 15:40 16:03 19:50 ESR Sodium Potassium Chloride Carbon Dioxide Anion Gap BUN Creatinine Estimated GFR POC Glucose 137 H 132 H Random Glucose Calcium Total Bilirubin AST ALT Alkaline Phosphatase Total Protein Albumin Triglycerides 96 Cholesterol 179 LDL Cholesterol, Calc 111 H HDL Cholesterol 48.5 Cholesterol/HDL Ratio 3.69 Vitamin B12 326 TSH 1.550 Thyroxine (T4) 10.0 Urine Opiates Screen Ur Barbiturates Screen Ur Amphetamine Screen U Benzodiazepines Scrn Urine Cocaine Screen U Cannabinoids Screen 05/10/18 05/10/18 07:02 07:14 ESR Sodium 140 Potassium 4.1 Chloride 101 Carbon Dioxide 34.1 H Anion Gap 5 BUN 19 H Creatinine 0.91 Estimated GFR 83 L POC Glucose 190 H Random Glucose 171 H Calcium 8.6 Total Bilirubin 0.2 AST 11 L ALT 17 Alkaline Phosphatase 60 Total Protein 6.7 Albumin 2.9 L Triglycerides 132 Cholesterol 163 LDL Cholesterol, Calc 92 HDL Cholesterol 44.9 Cholesterol/HDL Ratio 3.63 Vitamin B12 TSH Thyroxine (T4) Urine Opiates Screen Ur Barbiturates Screen Ur Amphetamine Screen U Benzodiazepines Scrn Urine Cocaine Screen U Cannabinoids Screen Review/Management - Review/Management Plan: imp mra neck ok mri c spine r disc with spinal stenosis c5-6 have nusu see echo holter pend on plavix tia eeg nl he states some diplopia and lazy eye left in past maxim echeck mg labs and he should see optho
--- NOTE | 2018-05-10 10:45 | P.CONNS ---
History of Present Illness Service: neurosurg Consult date: 05/10/18 Requesting Physician: Barrington Ariza Reason for Consult: cervical stenosis Primary Care Provider: UNKNOWN Chief Complaint: TIA History of Present Illness: This is a 67-year-old right-handed man with history of diabetes, non-insulin; hypertension. He reports that for the last 2 months, his hands have fallen asleep at night and somewhat during the day. His feet and his toes have been numb for about 6 months. He has had swelling in his feet for about 6 months Apparently he noticed yesterday was numb on the right side of his face and arm, not his leg, and then he had some difficulty talking, possibly some expressive aphasia, a bright flash in the left eye, a mild headache and he had headaches for the last several months, also. He thinks he may have a neck problem because sometimes when he turns head to the left or to the right, he notices his hands might go numb. He denies any focal motor weakness. He denies any incontinence of stool or urine He was brought to the emergency room for a possible TIA. He was evaluated by a neurologist. MRI of the cervical spine was obtained which show some multilevel spinal stenosis. Neurosurgical consultation was requested Review of Systems All other systems reviewed negative except as stated in HPI PMFSH - History History Provided By: Patient - Medical History Medical History: Medical History (Last Reviewed 05/10/18 @ 15:04 by Juan Pablo Dos Santos MD) Diabetes Hypertension - Tobacco History Second Hand Smoke Exposure: No Smoking Status: Never smoker - Alcohol History How Often Do You Have a Drink Containing Alcohol: Never - Substance Use History Substance History: No History of Abuse - Travel History Recent Travel in the [place] Within the Last 8 Weeks: No Recent Travel Out of the Country Within the Last 8 Weeks: No - Immunization History Tetanus Immunization: Unsure Hx Influenza Vaccine This Season: No Medications and Allergies Active Medications: Active Medications Al Hydroxide/Mg Hydroxide (Milk Of Magnjuan Liq) 30 ml PO Q12H PRN PRN Reason: Mild Constipation Last Admin: 05/10/18 03:10 Dose: 30 ml Aspirin (Aspirin) 325 mg PO DAILY [facility]EC[facility] Last Admin: 05/10/18 08:00 Dose: 325 mg Atenolol (Tenormin) 25 mg PO DAILY CECIL Last Admin: 05/10/18 08:01 Dose: 25 mg Bisacodyl (Dulcolax Supp) 10 mg RECTAL DAILY PRN PRN Reason: SEVERE CONSITIPATION Clopidogrel Bisulfate (Plavix) 75 mg PO DAILY [facility] Last Admin: 05/10/18 08:00 Dose: 75 mg Dextrose (D50w Vial) 50 ml IV.PUSH UNSCH PRN PRN Reason: PER HYPOGLYCEMIA PROTOCOL Enalaprilat (Vasotec Inj) 1.25 mg IV.PUSH Q4H PRN PRN Reason: For SBP > 220 or DBP > 120 Fentanyl (Duragesic 100 Mcg Patch.72hr) 1 patch T-DERMAL Q72H [facility] Last Admin: 05/09/18 22:25 Dose: 1 patch Furosemide (Lasix) 40 mg PO DAILY [facility] Last Admin: 05/10/18 08:00 Dose: 40 mg Glucagon (Glucagon Inj) 1 mg OTHER UNSCH PRN PRN Reason: for Hypoglycemia Protocol Sodium Chloride (Ns Inj) 1,000 mls @ 70 mls/hr IV.CONT .[id number] [facility] Last Admin: 05/10/18 07:16 Dose: Not Given Insulin Aspart (Novolog Insulin Correctional Sugar Inj) 0 unit SQ [facility]; Protocol Last Admin: 05/10/18 07:18 Dose: 1 unit Lactulose (Lactulose Liq) 30 ml PO DAILY PRN PRN Reason: SEVERE CONSITIPATION Morphine Sulfate (Oramorph Sr) 100 mg PO Q12H [facility] Last Admin: 05/10/18 08:00 Dose: 100 mg Ondansetron HCl (Zofran Odt) 4 mg PO Q6H PRN PRN Reason: NAUSEA OR VOMITING Last Admin: 05/10/18 00:22 Dose: 4 mg Oxycodone HCl (Roxicodone) 30 mg PO Q4H PRN PRN Reason: PAIN SCALE 5-10 Last Admin: 05/10/18 07:17 Dose: 30 mg Pravastatin Sodium (Pravachol) 40 mg PO HS [facility] Last Admin: 05/09/18 20:53 Dose: 40 mg Senna/Docusate Sodium (Dayanna-Colace) 1 tab PO BID [facility] Last Admin: 05/10/18 08:00 Dose: 1 tab Sennosides (Senokot) 17.2 mg PO Q12H PRN PRN Reason: Moderate Constipation Sodium Chloride (Ns Flush) 2 ml IV.FLUSH BID [facility] Last Admin: 05/10/18 08:00 Dose: 2 ml Sodium Chloride (Ns Flush) 2 ml IV.FLUSH PRN PRN PRN Reason: FLUSH AFTER USING IV ACCESS Temazepam (Restoril) 15 mg PO HS PRN PRN Reason: INSOMNIA Allergies Allergy/AdvReac Type Severity Reaction Status Date / Time No Known Allergies Allergy Verified 05/08/18 23:09 Home Medications Medication Instructions Recorded Confirmed Type atenolol 25 mg PO DAILY 05/09/18 05/09/18 History fentanyl 1 patch TRANSDERMAL Q72H 05/09/18 05/09/18 History furosemide 40 mg PO DAILY 05/09/18 05/09/18 History metformin 500 mg PO BID 05/09/18 History morphine 100 mg PO Q12H 05/09/18 05/09/18 History oxycodone 30 mg PO Q4HR 05/09/18 05/09/18 History Exam Vital signs: Vital Signs 05/09/18 12:00 05/09/18 16:00 05/09/18 20:00 Temperature 97.8 F 97.5 F L 97.7 F Pulse Rate 72 71 75 Respiratory Rate 14 18 19 Blood Pressure 174/80 H 170/80 H 158/70 H Pulse Oximetry 94 L 96 98 05/10/18 00:00 05/10/18 01:00 05/10/18 03:35 Temperature 97.5 F L Pulse Rate 79 Respiratory Rate 19 16 15 Blood Pressure 164/75 H Pulse Oximetry 98 05/10/18 04:00 05/10/18 07:26 05/10/18 07:47 Temperature 97.5 F L Pulse Rate 77 75 Respiratory Rate 19 18 Blood Pressure 162/76 H Pulse Oximetry 98 05/10/18 08:00 Temperature 98.1 F Pulse Rate 77 Respiratory Rate 18 Blood Pressure 145/71 H Pulse Oximetry 92 L Intake & Output 05/09/18 05/10/18 05/10/18 18:59 06:59 18:59 Intake Total 1000 / 1000 Output Total 2200 / 2200 Balance -1200 / -1200 Weight 129.4 kg Intake: Oral 1000 / 1000 Output: Urine 2200 / 2200 Other: Date of Last Bowel Movement 05/08/18 05/08/18 05/08/18 Narrative: The patient is alert, awake. Comfortable, in no acute distress. Speech is fluent. Cranial nerve examination: pupils to be equal, round and reactive to light. Extra-ocular movements are intact. Facial motor and sensory function are normal and symmetrical. Gross hearing appears intact. Sternocleidomastoid and trapezius muscles are symmetrical. Other cranial nerves are intact. Neck is soft and supple with a good range of motion without pain. Muscle strength is normal in all muscle groups of both upper and lower extremities. Sensory examination is intact to light touch and pin prick in both upper extremities and decreased to pinprick at the toes Deep tendon reflexes are trace to absent in both upper and lower extremities. There is a bilateral plantar flexion response. Cerebellar examination is unremarkable, without deficits. Lungs are clear Heart regular rhythm is regular rate Skin warm and dry Ankles and feet very edematous Results - Laboratory Findings CBC and BMP: 05/08/18 23:30 05/10/18 07:14 Abnormal lab findings: Abnormal Labs 05/08/18 05/08/18 05/08/18 23:18 23:30 23:30 Neut % (Auto) 78.9 H Neut # (Auto) 8.1 H Carbon Dioxide BUN Estimated GFR 73 L POC Glucose 145 H Random Glucose 148 H AST CK-MB (CK-2) 4.0 H Troponin I Less than 0.02 L Albumin LDL Cholesterol, Calc Urine Protein Urine Opiates Screen 05/09/18 05/09/18 05/09/18 00:00 11:17 13:46 Neut % (Auto) Neut # (Auto) Carbon Dioxide BUN Estimated GFR POC Glucose 195 H Random Glucose AST CK-MB (CK-2) Troponin I Albumin LDL Cholesterol, Calc Urine Protein 100 H Urine Opiates Screen Pos H 05/09/18 05/09/18 05/09/18 15:40 16:03 19:50 Neut % (Auto) Neut # (Auto) Carbon Dioxide BUN Estimated GFR POC Glucose 137 H 132 H Random Glucose AST CK-MB (CK-2) Troponin I Albumin LDL Cholesterol, Calc 111 H Urine Protein Urine Opiates Screen 05/10/18 05/10/18 07:02 07:14 Neut % (Auto) Neut # (Auto) Carbon Dioxide 34.1 H BUN 19 H Estimated GFR 83 L POC Glucose 190 H Random Glucose 171 H AST 11 L CK-MB (CK-2) Troponin I Albumin 2.9 L LDL Cholesterol, Calc Urine Protein Urine Opiates Screen Assessment and Plan - Plan I have reviewed with Mr Marcum his clinical findings and radiological studies. I have discussed the alternative methods of treatment including, conservative management, pain management by an interventional banner painter, or a surgical decompression, which should always be a last resort. I suspect that he likely suffered possibly a transient ischemic attack. He was started on on Plavix and aspirin. Stroke workup is in progress with an echo and a Holter, an MRA of the neck, an LDL cholesterol, some other blood work. He looks like he is fully recovered from the TIA at this time. MRI of his cervical spine shows spinal stenosis. He does not have any focal motor deficit or clinical evidence of cervical myelopathy. He understands that a surgical procedure should be a last resort. Given his recent TIA he is not a surgical candidate at this time and I recommend to continue nonoperative treatment for now. He has clinicaL EVIDENCE OF diabetic neuropathy and probably superimposed carpal tunnel syndrome. MRA of the neck and brain were negative Pulmonary: aggressive pulmonary toilette, nasotracheal suction, and breathing treatments with nebulizers. Daily PT and OT Renal: Continue to monitor closely urine output, BUN and creatinine Endocrine: Continue to Monitor serial Acu checks and SSI as needed in detail ID continue to monitor for signs of infection Continue Protonix for stress ulcer prophylaxis Continue Nacho hose and SCD's for DVT prophylaxis Further recommendations will be provided upon request depending on the patient' s clinical evaluation and follow up studies.
--- NOTE | 2018-05-10 13:26 | P.PN ---
Subjective Interval history: Follow-up visit HTN, DM, peripheral neuropathy, possible TIA with slurred speech , facial droop. Patient seen and examined today. Reports he continues to have neuropathy. States that he has no visual changes however he reports his left eye moving opposite his right, lags "lazy" eye. No changes in vision, no slurred speech. Otherwise, Denies pain and discomfort. Denies SOB/ dyspnea. Denies chest pain, palpitations, headaches, dizziness. Denies fevers, chills, n/ v/d. Denies dysuria. Physical Exam Vital signs: Vital Signs 05/09/18 16:00 05/09/18 20:00 05/10/18 00:00 Temperature 97.5 F L 97.7 F 97.5 F L Pulse Rate 71 75 79 Respiratory Rate 18 19 19 Blood Pressure 170/80 H 158/70 H 164/75 H Pulse Oximetry 96 98 98 05/10/18 01:00 05/10/18 03:35 05/10/18 04:00 Temperature 97.5 F L Pulse Rate 77 Respiratory Rate 16 15 19 Blood Pressure 162/76 H Pulse Oximetry 98 05/10/18 07:26 05/10/18 07:47 05/10/18 08:00 Temperature 98.1 F Pulse Rate 75 77 Respiratory Rate 18 18 Blood Pressure 145/71 H Pulse Oximetry 92 L 05/10/18 08:30 05/10/18 12:00 Temperature 97.4 F L Pulse Rate 66 Respiratory Rate 18 17 Blood Pressure 148/78 H Pulse Oximetry 94 L Intake & Output 05/09/18 05/10/18 05/10/18 18:59 06:59 18:59 Intake Total 1000 / 1000 Output Total 2200 / 2200 Balance -1200 / -1200 Weight 129.4 kg Intake: Oral 1000 / 1000 Output: Urine 2200 / 2200 Other: Date of Last Bowel Movement 05/08/18 05/08/18 05/08/18 Narrative: GENERAL: This is an obese, well-developed patient, in no apparent distress. SKIN: Warm and dry. HEENT: Normocephalic. Pupils equal round and reactive. No left eye lag noted. Nose without bleeding. Airway patent. NECK: Trachea midline. Supple. CARDIOVASCULAR: Regular rate and rhythm without murmurs, gallops, or rubs. RESPIRATORY: Clear to auscultation. Breath sounds equal bilaterally. No wheezes , rales, or rhonchi. GASTROINTESTINAL: Abdomen soft, non-tender, obese. Bowel Sounds normoactive x4. MUSCULOSKELETAL: Extremities without clubbing, cyanosis. Dependent rubor. Bilateral lower extremity +1 edema. NEUROLOGICAL: Awake and alert. Oriented to time, place, person. Cranial nerves intact. Moves all extremities. Normal speech. Results - Labs CBC & Chem 7: 05/08/18 23:30 05/10/18 07:14 Laboratory Results - last 24 hr 05/09/18 05/09/18 05/09/18 13:46 15:40 15:40 ESR 11 Sodium Potassium Chloride Carbon Dioxide Anion Gap BUN Creatinine Estimated GFR POC Glucose Random Glucose Hemoglobin A1c Calcium Total Bilirubin AST ALT Alkaline Phosphatase Total Protein Albumin Triglycerides 96 Cholesterol 179 LDL Cholesterol, Calc 111 H HDL Cholesterol 48.5 Cholesterol/HDL Ratio 3.69 Vitamin B12 326 TSH 1.550 Thyroxine (T4) 10.0 Urine Opiates Screen Pos H Ur Barbiturates Screen Neg Ur Amphetamine Screen Neg U Benzodiazepines Scrn Neg Urine Cocaine Screen Neg U Cannabinoids Screen Neg 05/09/18 05/09/18 05/10/18 16:03 19:50 07:02 ESR Sodium Potassium Chloride Carbon Dioxide Anion Gap BUN Creatinine Estimated GFR POC Glucose 137 H 132 H 190 H Random Glucose Hemoglobin A1c Calcium Total Bilirubin AST ALT Alkaline Phosphatase Total Protein Albumin Triglycerides Cholesterol LDL Cholesterol, Calc HDL Cholesterol Cholesterol/HDL Ratio Vitamin B12 TSH Thyroxine (T4) Urine Opiates Screen Ur Barbiturates Screen Ur Amphetamine Screen U Benzodiazepines Scrn Urine Cocaine Screen U Cannabinoids Screen 05/10/18 05/10/18 05/10/18 07:14 07:14 10:57 ESR Sodium 140 Potassium 4.1 Chloride 101 Carbon Dioxide 34.1 H Anion Gap 5 BUN 19 H Creatinine 0.91 Estimated GFR 83 L POC Glucose 133 H Random Glucose 171 H Hemoglobin A1c 7.4 H Calcium 8.6 Total Bilirubin 0.2 AST 11 L ALT 17 Alkaline Phosphatase 60 Total Protein 6.7 Albumin 2.9 L Triglycerides 132 Cholesterol 163 LDL Cholesterol, Calc 92 HDL Cholesterol 44.9 Cholesterol/HDL Ratio 3.63 Vitamin B12 TSH Thyroxine (T4) Urine Opiates Screen Ur Barbiturates Screen Ur Amphetamine Screen U Benzodiazepines Scrn Urine Cocaine Screen U Cannabinoids Screen - Imaging Impressions Cervical Spine MRI 05/09/18 00:00 CONCLUSION: Significant thecal sac stenosis C4-5 and C5-6 with slight flattening of the spinal cord at C5-6 level. Neural foraminal compromise bilateral C2-3, bilateral C3-4, bilateral C4-5, bilateral C5-6, bilateral C6-7. Neck MRA 05/09/18 00:00 CONCLUSION: 1. Limited evaluation of the right ICA due to artifact and slight to moderate stenosis is difficult to exclude. Percent stenosis is calculated using the diameter of the stenotic region over the diameter of the normal distal internal carotid artery Assessment and Plan - Assessment (1) TIA (transient ischemic attack) Code(s): G45.9 - Transient cerebral ischemic attack, unspecified Status: Acute (2) HTN (hypertension) Code(s): I10 - Essential (primary) hypertension Status: Acute (3) DM (diabetes mellitus) Code(s): E11.9 - Type 2 diabetes mellitus without complications Status: Acute - Plan 67-year-old male with a PMH of HTN, DM and Peripheral Neuropathy who was brought to the ER secondary to slurred speech and facial droop TIA, acute onset facial droop -Slurred speech and upper extremity numbness, now improved. -CT Head w/ no acute findings. -Head MRI chronic small vessel ischemic and atrophic changes. Head MRA chronic atherosclerotic disease without evidence of truncation or definite filling defects. -Neck MRA Limited evaluation of the right ICA due to artifact and slight to moderate stenosis is difficult to exclude percent stenosis is calculated using the diameter of the stenotic region over the diameter of the normal distal internal carotid artery -MRI Cervical Spine Significant thecal sac stenosis C4-5 and C5-6 with slight flattening of the spinal cord at C5-6 level. Neural foraminal compromise bilateral C2-3, bilateral C3-4, bilateral C4-5, bilateral C5-6, bilateral C6-7. -Carotid Doppler shows unremarkable study. -On ASA 325mg qd. Resume ASA, start Statin. -Pending ECHO -Consult physical therapy, speech therapy eval and treat. -Consult neurology, neurosurgery for stenosis. Appreciate recommendations. -Recommendations from neurosurgery includes checking LDL, starting Plavix and stopping aspirin in 3 days. Stop aspirin 05/13/18 -Holter monitor in place. -Lazy eye? refer to ophthalmology in outpatient setting. Eye exam within normal HTN, Uncontrolled. -BP 220's on arrival, s/p Labetalol and Lasix in ER -BP in the 140s. -will hold off on any further antihypertensives to allow for permissive HTN. -Monitor BP DM 2, on metformin at home -Hold Metformin. Patient reports he is not really on metformin at home but he has been prescribed metformin about 2 years ago however he is not taking it as it is prescribed that is why he has extra medications and prescription refills at home. Discussed with patient importance of diabetic control secondary to worsening neuropathy. Verbalized understanding. -Sliding scale with Accu-Cheks. -Hgb A1c 7.4 DVT Prophylaxis: SCD/teds. Code Status: Full code Discussed Condition With: Patient, nursing Discharge Planning: Echo pending. DC when clinically improved and cleared by neurology.
[2018-05-11] MEDS: Sod Chloride 0.9% Inj 1,000 ML IV.CONT SCH ×2 (01:13→16:43)
[2018-05-11 08:14] LABS: Baso % (Auto) 0.3 % (0.0-2.0); Eos # (Auto) 0.3 th/mm3 (0.0-0.4); Eos % (Auto) 3.3 % (0.0-4.0); Hematocrit 41.2 % (39.0-51.0); Hemoglobin 13.2 gm/dL (13.0-17.0); Lymph # (Auto) 1.8 th/mm3 (1.0-4.8); Lymph % (Auto) 22.3 % (9.0-44.0); Mean Corpuscular Hemoglobin 27.8 pg (27.0-34.0); Mean Platelet Volume 7.5 fL (7.0-11.0); Mono # (Auto) 0.8 th/mm3 (0.0-0.9); Mono % (Auto) 9.9 % (0.0-8.0); Neut # (Auto) 5.2 th/mm3 (1.8-7.7); Neut % (Auto) 64.2 % (16.0-70.0); Platelet Count 300 th/mm3 (150-450); Red Blood Count 4.74 mil/mm3 (4.50-5.90); Red Cell Distribution Width 14.7 % (11.6-17.2); White Blood Count 8.2 th/mm3 (4.0-11.0)
[2018-05-11 08:41] LABS: Calcium 9.1 mg/dL (8.5-10.1); Potassium 4.3 meq/L (3.5-5.1)
[2018-05-11] MEDS: Atenolol 25 MG Tablet PO SCH (08:54)
[2018-05-11] MEDS: Senna/Docusate Sodium 8.6/50 MG Tablet PO SCH ×2 (08:54→20:59)
[2018-05-11] MEDS: Aspirin 325 MG Tablet PO SCH (08:54)
[2018-05-11] MEDS: Morphine Sulfate 100 MG SR Tablet PO SCH ×2 (08:55→20:59)
[2018-05-11] MEDS: Furosemide 40 MG Tablet PO SCH (08:55)
[2018-05-11] MEDS: Insulin NovoLOG Aspart Correctional Sugar Inj SQ SCH ×4 (08:56→20:57)
--- NOTE | 2018-05-11 15:32 | P.PN ---
Subjective Interval history: Follow-up visit HTN, DM, peripheral neuropathy, possible TIA with slurred speech , facial droop. Patient seen and examined today. Reports he is doing okay. States that he is able to walk using a walker from his bed to the bathroom. Denies any dizziness, change of vision, slurred speech, headaches, chest pain. Reports constipation. Denies any nausea, vomiting. Denies any fevers or chills. Physical Exam Vital signs: Vital Signs 05/10/18 16:00 05/10/18 16:15 05/10/18 19:35 Temperature 97.2 F L 97.9 F Pulse Rate 71 75 Respiratory Rate 18 18 18 Blood Pressure 166/77 H 158/70 H Pulse Oximetry 94 L 96 05/10/18 19:53 05/11/18 00:00 05/11/18 00:57 Temperature 98.0 F Pulse Rate 73 65 59 L Respiratory Rate 18 Blood Pressure 165/77 H Pulse Oximetry 94 L 05/11/18 01:35 05/11/18 03:43 05/11/18 08:00 Temperature 97.3 F L Pulse Rate 65 Respiratory Rate 17 18 Blood Pressure 173/78 H Pulse Oximetry 96 95 05/11/18 09:00 Temperature Pulse Rate 83 Respiratory Rate Blood Pressure Pulse Oximetry Intake & Output 05/10/18 05/11/18 05/11/18 18:59 06:59 18:59 Intake Total 850 / 850 480 / 480 Output Total 1600 / 1600 Balance -750 / -750 480 / 480 Weight 129.4 kg Intake: Oral 850 / 850 480 / 480 Output: Urine 1600 / 1600 Other: # Voids 4 Date of Last Bowel Movement 05/08/18 05/08/18 05/08/18 # Bowel Movements 0 Narrative: GENERAL: This is an obese, well-developed patient, in no apparent distress. SKIN: Warm and dry. HEENT: Normocephalic. Pupils equal round and reactive. No left eye lag noted. Nose without bleeding. Airway patent. NECK: Trachea midline. Supple. CARDIOVASCULAR: Regular rate and rhythm without murmurs, gallops, or rubs. RESPIRATORY: Clear to auscultation. Breath sounds equal bilaterally. No wheezes , rales, or rhonchi. GASTROINTESTINAL: Abdomen soft, non-tender, obese. Bowel Sounds normoactive x4. MUSCULOSKELETAL: Extremities without clubbing, cyanosis. Dependent rubor. Bilateral lower extremity +1 edema. NEUROLOGICAL: Awake and alert. Oriented to time, place, person. Cranial nerves intact. Moves all extremities. Normal speech. Results - Labs CBC & Chem 7: 05/11/18 07:42 05/11/18 07:42 Laboratory Results - last 24 hr 05/10/18 05/10/18 05/11/18 15:42 20:12 07:17 WBC RBC Hgb Hct MCV MCH MCHC RDW Plt Count MPV Neut % (Auto) Lymph % (Auto) [place] % (Auto) Eos % (Auto) Baso % (Auto) Neut # (Auto) Lymph # (Auto) [place] # (Auto) Eos # (Auto) Baso # (Auto) WBC Differential Differential Comment Sodium Potassium Chloride Carbon Dioxide Anion Gap BUN Creatinine Estimated GFR POC Glucose 171 H 149 H 135 H Random Glucose Calcium 05/11/18 05/11/18 07:42 07:42 WBC 8.2 RBC 4.74 Hgb 13.2 Hct 41.2 MCV 87.0 MCH 27.8 MCHC 32.0 RDW 14.7 Plt Count 300 MPV 7.5 Neut % (Auto) 64.2 Lymph % (Auto) 22.3 [place] % (Auto) 9.9 H Eos % (Auto) 3.3 Baso % (Auto) 0.3 Neut # (Auto) 5.2 Lymph # (Auto) 1.8 [place] # (Auto) 0.8 Eos # (Auto) 0.3 Baso # (Auto) 0.0 WBC Differential . Differential Comment Auto diff final Sodium 139 Potassium 4.3 Chloride 101 Carbon Dioxide 33.0 H Anion Gap 5 BUN 22 H Creatinine 0.86 Estimated GFR 89 POC Glucose Random Glucose 114 H Calcium 9.1 Assessment and Plan - Assessment (1) TIA (transient ischemic attack) Code(s): G45.9 - Transient cerebral ischemic attack, unspecified Status: Acute (2) HTN (hypertension) Code(s): I10 - Essential (primary) hypertension Status: Acute (3) DM (diabetes mellitus) Code(s): E11.9 - Type 2 diabetes mellitus without complications Status: Acute - Plan 67-year-old male with a PMH of HTN, DM and Peripheral Neuropathy who was brought to the ER secondary to slurred speech and facial droop TIA, acute onset facial droop -Slurred speech and upper extremity numbness, now improved. -CT Head w/ no acute findings. -Head MRI chronic small vessel ischemic and atrophic changes. Head MRA chronic atherosclerotic disease without evidence of truncation or definite filling defects. -Neck MRA Limited evaluation of the right ICA due to artifact and slight to moderate stenosis is difficult to exclude percent stenosis is calculated using the diameter of the stenotic region over the diameter of the normal distal internal carotid artery -MRI Cervical Spine Significant thecal sac stenosis C4-5 and C5-6 with slight flattening of the spinal cord at C5-6 level. Neural foraminal compromise bilateral C2-3, bilateral C3-4, bilateral C4-5, bilateral C5-6, bilateral C6-7. -Carotid Doppler shows unremarkable study. -On ASA 325mg qd. Resume ASA, start Statin. -Pending ECHO, Holter monitor in place -Consult physical therapy, speech therapy eval and treat. -Consult neurology, neurosurgery for stenosis. Appreciate recommendations. -Recommendations from neurosurgery includes checking LDL, starting Plavix and stopping aspirin in 3 days. Stop aspirin 05/13/18 -Lazy eye? refer to ophthalmology in outpatient setting. Eye exam within normal -Pending neurology, neurosurgery clearance. Worked up for myasthenia. HTN, Uncontrolled. -Labetalol and Lasix given in ER -Permissive HTN. Continue atenolol daily. -Monitor BP DM 2, on metformin at home -Hold Metformin. Patient reports he is not really on metformin at home but he has been prescribed metformin about 2 years ago however he is not taking it as it is prescribed that is why he has extra medications and prescription refills at home. Discussed with patient importance of diabetic control secondary to worsening neuropathy. Verbalized understanding. -Sliding scale with Accu-Cheks. -Hgb A1c 7.4 -BG fairly controlled DVT Prophylaxis: SCD/teds. Code Status: Full code Discussed Condition With: Patient, nursing Discharge Planning: Echo pending. DC when clinically improved and cleared by neurology.
[2018-05-11] MEDS ORDERED: Bisacodyl 10 MG Supp RECTAL ONE (16:30)
--- NOTE | 2018-05-11 21:13 | ECHRPT ---
Indication: CVA/TIA CONCLUSIONS Normal left ventricular size. Mild concentric left ventricular hypertrophy. The left ventricular systolic function is normal with an estimated ejection fraction in the range of 55-60%. No regional wall motion abnormalities are present. Trace mitral valve regurgitation. The aortic valve is not well visualized. There is trace tricuspid valve regurgitation. BP: / HR: Rhythm: Sinus MEASUREMENTS (Male / Female) Normal Values Technical Quality:Fair 2D ECHO LV Diastolic Diameter PLAX 5.0 cm 4.2 - 5.9 / 3.9 - 5.3 cm LV Systolic Diameter PLAX 4.2 cm IVS Diastolic Thickness 1.4 cm 0.6 - 1.0 / 0.6 - 0.9 cm LVPW Diastolic Thickness 1.4 cm 0.6 - 1.0 / 0.6 - 0.9 cm LV Relative Wall Thickness 0.5 RV Internal Dim ED PLAX 2.2 cm LVOT Diameter 3.4 cm Aortic Root Diameter 4.4 cm LA Systolic Diameter LX 3.3 cm 3.0 - 4.0 / 2.7 - 3.8 cm M-MODE AV Cusp Separation MM 2.3 cm DOPPLER AV Peak Velocity 105.0 cm/s AV Peak Gradient 4.4 mmHg AV Mean Gradient 2.0 mmHg AV Velocity Time Integral 22.0 cm LVOT Peak Velocity 64.7 cm/s LVOT Peak Gradient 1.7 mmHg LVOT Velocity Time Integral 12.1 cm AV Area Cont Eq vti 5.0 cm AV Area Cont Eq pk 5.6 cm Mitral E Point Velocity 59.7 cm/s Mitral A Point Velocity 62.2 cm/s Mitral E to A Ratio 1.0 LV E' Lateral Velocity 5.9 cm/s Mitral E to LV E' Lateral Ratio 10.0 LV E' Septal Velocity 4.5 cm/s Mitral E to LV E' Septal Ratio 13.3 Right Atrial Pressure 10.0 mmHg PV Peak Velocity 51.9 cm/s PV Peak Gradient 1.1 mmHg FINDINGS LEFT VENTRICLE Normal left ventricular size. Mild concentric left ventricular hypertrophy. The left ventricular systolic function is normal with an estimated ejection fraction in the range of 55-60%. No regional wall motion abnormalities are present. RIGHT VENTRICLE Normal right ventricular size and systolic function. LEFT ATRIUM The left atrial size is normal. RIGHT ATRIUM The right atrial size is normal. ATRIAL SEPTUM No atrial level shunt is demonstrated by color flow Doppler interrogation. AORTA The aortic root and proximal ascending aorta are not well visualized. MITRAL VALVE Trace mitral valve regurgitation. AORTIC VALVE The aortic valve is not well visualized. TRICUSPID VALVE There is trace tricuspid valve regurgitation. PULMONARY VALVE The pulmonary valve is not well visualized. VESSELS The inferior vena cava is normal in size. PERICARDIUM No pericardial effusion. Mahamed Zurita MD (Electronically Signed) Final Date:11 May 2018 21:12
--- NOTE | 2018-05-11 22:18 | HM ---
Date Performed: 05/09/2018 Time Performed: 20:44:00 HOOKUP DATE: 05/09/18 08:44:00 PM Sat ANALYSIS START TIME: 05/09/2018 8:49:00 PM ANALYSIS END TIME: 05/10/2018 8:53:00 PM PATIENT AGE: 67 PATIENT HEIGHT: 70 PATIENT WEIGHT: 285 DRUG LIST: TIA PATIENT DIAGNOSIS: ROOM 1636 TEST NARRATIVE: The patient's average heart rate was 75 BPM. No episodes of tachycardia wer e noted. No episodes of bradycardia were noted. No pauses exceeding 2.0 seconds were noted. 9 ventricular ectopics, which represented < 1% of the total beat count, were noted. The highest vent ricular ectopic frequency occurred from 04:00 AM to 05:00 AM Sun. During this time 4 VE(s) occurred. Ventricular ectopics were observed as 9 isolated beat(s) only. No couplets or runs were noted. 80 supraventricular ectopics, which represented < 1% of the total beat count, were noted. The highe st supraventricular ectopic frequency occurred from 10:00 PM to 11:00 PM Sat. During this time 7 SVE (s) occurred. No episodes of ST depression (defined as -1.0 mm or more) were noted in channel 1. No episodes of ST depression (defined as -1.0 mm or more) were noted in channel 2. No episodes of S T depression (defined as -1.0 mm or more) were noted in channel 3. NO DIARY GIVEN TO PATIENT TEST INTERPRETATION: 1. Predominant underlying rhythm is Sinus rhythm 2. Occasional PACs and PVCs noted 3. No episodes of SVT, AFIB or ventricular tachycardia were noted 4. NO pauses > 2 seconds noted during the recorded time interval Signed by : Will Carbajal
[2018-05-12] MEDS: Sod Chloride 0.9% Inj 1,000 ML IV.CONT SCH ×2 (06:38→17:50)
--- NOTE | 2018-05-12 07:44 | P.PNNEU ---
Subjective Subjective Comments: sr Active Medications: Active Medications Al Hydroxide/Mg Hydroxide (Milk Of Magnesia Liq) 30 ml PO Q12H PRN PRN Reason: Mild Constipation Last Admin: 05/10/18 03:10 Dose: 30 ml Aspirin (Aspirin) 325 mg PO DAILY [facility] Stop: 05/12/18 08:59 Last Admin: 05/11/18 08:54 Dose: 325 mg Atenolol (Tenormin) 25 mg PO DAILY [facility] Last Admin: 05/11/18 08:54 Dose: 25 mg Bisacodyl (Dulcolax Supp) 10 mg RECTAL DAILY PRN PRN Reason: SEVERE CONSITIPATION Clopidogrel Bisulfate (Plavix) 75 mg PO DAILY [facility] Last Admin: 05/11/18 08:54 Dose: 75 mg Dextrose (D50w Vial) 50 ml IV.PUSH UNSCH PRN PRN Reason: PER HYPOGLYCEMIA PROTOCOL Enalaprilat (Vasotec Inj) 1.25 mg IV.PUSH Q4H PRN PRN Reason: For SBP > 220 or DBP > 120 Fentanyl (Duragesic 100 Mcg Patch.72hr) 1 patch T-DERMAL Q72H [facility] Last Admin: 05/09/18 22:25 Dose: 1 patch Furosemide (Lasix) 40 mg PO DAILY [facility] Last Admin: 05/11/18 08:55 Dose: 40 mg Glucagon (Glucagon Inj) 1 mg OTHER UNSCH PRN PRN Reason: for Hypoglycemia Protocol Sodium Chloride (Ns Inj) 1,000 mls @ 70 mls/hr IV.CONT .[id number] [facility] Last Admin: 05/12/18 06:38 Dose: Not Given Insulin Aspart (Novolog Insulin Correctional Sugar Inj) 0 unit SQ ACHS [facility]; Protocol Last Admin: 05/11/18 20:57 Dose: 1 unit Lactulose (Lactulose Liq) 30 ml PO DAILY PRN PRN Reason: SEVERE CONSITIPATION Last Admin: 05/11/18 08:54 Dose: 30 ml Morphine Sulfate (Oramorph Sr) 100 mg PO Q12H [facility] Last Admin: 05/11/18 20:59 Dose: 100 mg Ondansetron HCl (Zofran Odt) 4 mg PO Q6H PRN PRN Reason: NAUSEA OR VOMITING Last Admin: 05/10/18 00:22 Dose: 4 mg Oxycodone HCl (Roxicodone) 30 mg PO Q4H PRN PRN Reason: PAIN SCALE 5-10 Last Admin: 05/12/18 03:08 Dose: 30 mg Pravastatin Sodium (Pravachol) 40 mg PO HS [facility] Last Admin: 05/11/18 20:57 Dose: 40 mg Senna/Docusate Sodium (Dayanna-Colace) 1 tab PO BID [facility] Last Admin: 05/11/18 20:59 Dose: 1 tab Sennosides (Senokot) 17.2 mg PO Q12H PRN PRN Reason: Moderate Constipation Last Admin: 05/10/18 20:18 Dose: 17.2 mg Sodium Chloride (Ns Flush) 2 ml IV.FLUSH BID [facility] Last Admin: 05/11/18 21:00 Dose: 2 ml Sodium Chloride (Ns Flush) 2 ml IV.FLUSH PRN PRN PRN Reason: FLUSH AFTER USING IV ACCESS Temazepam (Restoril) 15 mg PO HS PRN PRN Reason: INSOMNIA Last Admin: 05/11/18 21:29 Dose: 15 mg Allergies/Adverse Reactions: Allergies Allergy/AdvReac Type Severity Reaction Status Date / Time No Known Allergies Allergy Verified 05/08/18 23:09 Physical Exam Vital signs: Vital Signs 05/11/18 08:00 05/11/18 09:00 05/11/18 12:00 Temperature 98.1 F 97.3 F L Pulse Rate 66 83 59 L Respiratory Rate Blood Pressure 146/78 H 185/89 H Pulse Oximetry 95 05/11/18 16:00 05/11/18 19:40 05/11/18 23:44 Temperature 98 F 97.3 F L 97.8 F Pulse Rate 60 67 64 Respiratory Rate 18 18 18 Blood Pressure 186/78 H 166/79 H 133/74 Pulse Oximetry 96 98 98 05/11/18 23:54 05/12/18 02:56 05/12/18 03:07 Temperature 98.6 F Pulse Rate 70 60 Respiratory Rate 17 18 Blood Pressure 149/70 H Pulse Oximetry 97 05/12/18 04:44 Temperature Pulse Rate 68 Respiratory Rate Blood Pressure Pulse Oximetry Intake & Output 05/11/18 05/12/18 05/12/18 18:59 06:59 18:59 Intake Total 480 / 480 Balance 480 / 480 Weight 129.4 kg Intake: Oral 480 / 480 Other: # Voids 4 Date of Last Bowel Movement 05/08/18 05/11/18 # Bowel Movements 3 Narrative: face sym nl speec vff 5/5 all 4 exr Objective Laboratory Results - last 24 hr 05/11/18 05/11/18 05/11/18 07:42 07:42 16:46 WBC 8.2 RBC 4.74 Hgb 13.2 Hct 41.2 MCV 87.0 MCH 27.8 MCHC 32.0 RDW 14.7 Plt Count 300 MPV 7.5 Neut % (Auto) 64.2 Lymph % (Auto) 22.3 Gosper % (Auto) 9.9 H Eos % (Auto) 3.3 Baso % (Auto) 0.3 Neut # (Auto) 5.2 Lymph # (Auto) 1.8 Gosper # (Auto) 0.8 Eos # (Auto) 0.3 Baso # (Auto) 0.0 WBC Differential . Differential Comment Auto diff final Sodium 139 Potassium 4.3 Chloride 101 Carbon Dioxide 33.0 H Anion Gap 5 BUN 22 H Creatinine 0.86 Estimated GFR 89 POC Glucose 149 H Random Glucose 114 H Calcium 9.1 05/11/18 20:52 WBC RBC Hgb Hct MCV MCH MCHC RDW Plt Count MPV Neut % (Auto) Lymph % (Auto) Gosper % (Auto) Eos % (Auto) Baso % (Auto) Neut # (Auto) Lymph # (Auto) Gosper # (Auto) Eos # (Auto) Baso # (Auto) WBC Differential Differential Comment Sodium Potassium Chloride Carbon Dioxide Anion Gap BUN Creatinine Estimated GFR POC Glucose 181 H Random Glucose Calcium Review/Management - Review/Management Plan: imp mra neck ok mri c spine r disc with spinal stenosis c5-6 [facility] saw no surgery planned echo holter both neg on plavix tia eeg nl he states some diplopia and lazy eye left in past check mg labs still pend and he should see optho today he states lle number than usual i think his c spine is symptomatic and he should have surgery i would say in about two weeks med team plz notify [facility] his lle he thinks number and should he be on hard collar? o/w neuro merida could dc when cleared by [facility] as above today
[2018-05-12] MEDS: Atenolol 25 MG Tablet PO SCH (08:01)
[2018-05-12] MEDS: Furosemide 40 MG Tablet PO SCH (08:01)
[2018-05-12] MEDS: Morphine Sulfate 100 MG SR Tablet PO SCH (08:02)
[2018-05-12] MEDS: Senna/Docusate Sodium 8.6/50 MG Tablet PO SCH (08:02)
[2018-05-12] MEDS: Insulin NovoLOG Aspart Correctional Sugar Inj SQ SCH ×3 (08:09→17:47)
--- NOTE | 2018-05-12 17:15 | US ---
EXAM DATE: 05/12/2018 5:09 PM EDT AGE/SEX: 67 years / Male INDICATIONS: Left lower extremity swelling. CLINICAL DATA: This is the patient's initial encounter. Patient reports that signs and symptoms have been present for > 1 year and indicates a pain score of 0/10. MEDICAL/SURGICAL HISTORY: Diabetes. Hypertension. None. COMPARISON: No prior exams available for comparison. TECHNIQUE: Venous ultrasound of both lower extremities was performed from the inguinal ligament to t he proximal calf. Real-time, color Doppler and spectral tracing, compression and augmentation techni ques were used. FINDINGS: Normal compression of the deep venous system from the inguinal region to the proximal calf . No echogenic clot is seen. Normal response of the venous system to augmentation and respiration. CONCLUSION: 1. The study is negative for lower extremity deep venous thrombosis. Electronically signed by: Keegan Davalos MD 05/12/2018 5:13 PM EDT
--- NOTE | 2018-05-13 06:49 | P.DS ---
Date of admission: 05/09/18 04:47 Primary care physician: UNKNOWN Brief History from admission: This is a 67-year-old male with a PMH of HTN, DM and Peripheral Neuropathy who was brought to the ER secondary to slurred speech and facial droop starting earlier this afternoon. Pt's stepdaughter at bedside, states she noted pt to have slurred speech and word finding difficulty at approx 3pm. Stepdaughter drove over from [place] and noted pt to have facial droop. Pt also notes bilateral upper extremity numbness, which is chronic, but states worse than usual. Also notes chronic decreased motor strength in hands w/ difficulty grasping objects, "going on for months", but became transiently worse this afternoon, now back to baseline. No h/o similar symptoms. Takes full dose ASA daily. On arrival, BP 226/109, HR 76, O2 sat 98% on RA, Temp 99. CBC unremarkable. Chemistry essentially unremarkable. Troponin negative. UA negative for UTI. INR 1.0. Exar with cardiomegaly, minimal positive fluid balance. CT Head with no acute findings. DS: Medications - Discharge Medications Prescriptions: atorvastatin 40 mg PO HS #30 tab clopidogrel [Plavix] 75 mg PO DAILY #30 tab DS: Summary Hospital Course: Patient was admitted. Started on permissive hypertension. Was evaluated by neurology, eventually transitioned to Plavix. No evidence of acute infarct noted on imaging. Neurosurgery also evaluated the patient for C-spine spinal stenosis with conservative management recommended. Patient's symptoms subsided. Had some left lower extremity edema which was negative for DVT per imaging, But improved with increased diuresis. Patient has met maximal benefit from hospitalization is clinically stable for discharge. Was recommended to see ophthalmology outpatient for diplopia. - Time Spent with Patient Total time spent providing and/or coordinating discharge services: Less than 30 minutes - Quality: VTE Deep Vein Thrombosis/Pulmonary Embolism Present on Admission: No Exam Vital signs: Vital Signs 05/12/18 08:00 05/12/18 09:00 05/12/18 12:00 Temperature 98.3 F 98 F Pulse Rate 65 103 H 62 Respiratory Rate 18 18 Blood Pressure 125/54 L 150/65 H Pulse Oximetry 94 L 98 Intake & Output 05/12/18 05/12/18 05/13/18 06:59 18:59 06:59 Intake Total 480 / 480 Balance 480 / 480 Weight 129.4 kg Intake: Oral 480 / 480 Other: # Voids 4 Date of Last Bowel Movement 05/11/18 05/11/18 # Bowel Movements 3 Narrative: Intermittent diplopia with left eye drifting laterally No facial droop, no slurred speech, Symmetric gait with walker Mild to moderate left lower extremity edema, unlabored breathing, no shortness of breath Results Procedures completed during hospitalization: . Labs on day of discharge: Labs from last 24 hours 05/12/18 05/12/18 11:55 07:41 POC Glucose 130 H 163 H - Impressions ITS Impressions Chest X-Ray 05/08/18 23:21 CONCLUSION: 1. Cardiomegaly with minimal positive fluid balance. Head CT 05/08/18 23:21 CONCLUSION: 1. No acute intracranial abnormality. 2. Paranasal sinus mucosal disease, as above. . Carotid Doppler Study 05/09/18 00:00 CONCLUSION: Unremarkable study. Cervical Spine MRI 05/09/18 00:00 CONCLUSION: Significant thecal sac stenosis C4-5 and C5-6 with slight flattening of the spinal cord at C5-6 level. Neural foraminal compromise bilateral C2-3, bilateral C3-4, bilateral C4-5, bilateral C5-6, bilateral C6-7. Neck MRA 05/09/18 00:00 CONCLUSION: 1. Limited evaluation of the right ICA due to artifact and slight to moderate stenosis is difficult to exclude. Percent stenosis is calculated using the diameter of the stenotic region over the diameter of the normal distal internal carotid artery Head MRI 05/09/18 02:54 CONCLUSION: Chronic small vessel ischemic and atrophic changes. Venous Doppler Study 05/12/18 00:00 CONCLUSION: 1. The study is negative for lower extremity deep venous thrombosis. Discharge Plan - Discharge Disposition Patient Disposition: /Home Health Service - Discharge Condition Condition: Stable - Discharge Order Discharge Orders: Discharge Order (Routine); Ordered 05/12/18 Ordered By: Federico Ellis - Physicians Team Primary Care Provider: UNKNOWN, Attending Provider: Federico Ellis Other Providers: Barrington Ariza MD ; Juan Pablo Dos Santos MD
[2018-05-14 08:49] LABS: Methylmalonic Acid 0.35 nmol/mL (<=0.40)
== END 2018-05-12 09:15 | disposition home health service (06) ==
LOC: NEPC 22:58 → NEDA 05-09 04:47 → N06 05-09 05:29
PROVIDERS: ADMIT Hospitalist; ATTEND Hospitalist
DX: Z68.41 Body mass index [BMI] 40.0-44.9, adult; I44.0 Atrioventricular block, first degree; E11.42 Type 2 diabetes mellitus with diabetic polyneuropathy; M48.02 Spinal stenosis, cervical region; R29.810 Facial weakness; Z79.84 Long term (current) use of oral hypoglycemic drugs; I11.9 Hypertensive heart disease without heart failure; R27.0 Ataxia, unspecified; G56.00 Carpal tunnel syndrome, unspecified upper limb; G45.9 Transient cerebral ischemic attack, unspecified; R47.01 Aphasia; E66.9 Obesity, unspecified; K59.00 Constipation, unspecified; R60.0 Localized edema; H53.2 Diplopia; Z82.3 Family history of stroke; R47.81 Slurred speech